=== PATIENT | male | born 1975 | race Asian ===

== ENCOUNTER 2019-02-07 20:51 | Emergency (ER) | payer BC ==
[~2019-02-07] VITALS: Ht 165.1 cm; Wt 61.7 kg
[~2019-02-07 20:51] MED LIST: ALLOPURINOL PO; METFORMIN PO
[2019-02-07 20:57] VITALS: BP 150/90
--- NOTE | 2019-02-07 20:57 | NUR ---
TO BED # 03 AMBULATORY
[2019-02-07] MEDS ORDERED: NACL 0.9% 1,000 ML IV ONE (21:20)
--- NOTE | 2019-02-07 21:25 | NUR ---
PT BIB C/O FEVER. PT STATES INTERMITTENT FEVER X3 WEEKS, HAS BEEN TAKING ADVIL AT HOME W/O RELIEF; FEVER TEMP AT HOME RANGES FROM 99.1-102. PT REPORTS NAUSEA, AND APPETITIE CHANGES DURING THIS TIME. PT STATES 0/10 PAIN AT THIS TIME. --BREATHING EQUAL AND UNLABORED; LUNG SOUNDS CLEAR. PT SPEAKING IN CLEAR AND COMPLETE SENTENCES. AFEBRILE AT THIS TIME.
[2019-02-07 21:36] LABS: BASOPHILS # (AUTO) 0.1 K/uL (0.00-0.22); BASOPHILS % (AUTO) 1.4 % (0.0-2.0); EOSINOPHILS # (AUTO) 0.3 K/uL (0-0.4); EOSINOPHILS % (AUTO) 2.7 % (0.0-4.0); HEMATOCRIT 41.5 % (36-52); HEMOGLOBIN 13.7 g/dL (12.0-18.0); LYMPHOCYTES # (AUTO) 1.3 K/uL (2.0-11.5); LYMPHOCYTES % (AUTO) 13.9 % (20.5-51.1); MEAN CORPUSCULAR HEMOGLOBIN 29 pg (27-31); MEAN CORPUSCULAR HGB CONC 33 g/dL (33-37); MEAN CORPUSCULAR VOLUME 87.8 fL (80-94); MONOCYTES % (AUTO) 10.6 % (1.7-9.3); NEUTROPHILS # (AUTO) 6.5 K/uL (1.8-7.7); NEUTROPHILS % (AUTO) 71.4 % (42.2-75.2); PLATELET COUNT (AUTO) 312 K/uL (140-450); RED BLOOD CELL COUNT(AUTO) 4.72 MIL/uL (4.20-6.10); RED CELL DISTRIBUTION WIDTH 13.4 % (11.6-13.7); WHITE BLOOD COUNT (AUTO) 9.1 K/uL (4.8-10.8)
[2019-02-07 21:39] LABS: APPEARANCE,URINE HAZY (CLEAR); BILIRUBIN,URINE NEGATIVE (NEGATIVE); BLOOD, URINE 3+ (NEGATIVE); COLOR,URINE YELLOW (YELLOW); LEUKOCYTE ESTERASE ,URINE NEGATIVE (NEGATIVE); NITRITE, URINE NEGATIVE (NEGATIVE); PH,URINE 6.5 (5.0-9.0); UGLUCOSE 3+ (NEGATIVE)
[2019-02-07 21:52] LABS: RBC,URINE TOO NUMEROUS TO COUN /HPF (0-5); WBC,URINE 0-5 /HPF (0-5)
--- NOTE | 2019-02-07 21:53 | NUR ---
PT TO X-RAY VIA WHEELCHAIR BY TECH.
[2019-02-07 21:57] LABS: ANION GAP 14.4 (8-16); CARBON DIOXIDE 26.2 mmol/L (21-32); CREATININE 1.1 mg/dL (0.7-1.3); POTASSIUM 3.6 mmol/L (3.5-5.1)
[2019-02-07 22:02] LABS: THYROID STIMULATING HORMONE 1.84 uIU/mL (0.34-3.74); TOTAL BILIRUBIN 0.5 mg/dL (0.0-1.0)
[2019-02-08] MEDS ORDERED: LEVOFLOXACIN 500 MG/D5W PREMIX 100 ML IV ONE (00:05)
--- NOTE | 2019-02-08 01:22 | NUR ---
Patient discharged with v/s stable. Patients states he is feeling better, pain 0/10 at this time. Patient acting appropriatly. Written and verbal after care instructions given and explained. Patient alert, oriented and verbalized understanding of instructions. Ambulatory with steady gait. All questions addressed prior to discharge. ID band removed. Patient advised to follow up with PMD. Rx of Levofloxacin, and Flomax given. Patient educated on indication of medication including possible reaction and side effects. Opportunity to ask questions provided and answered.
[2019-02-08 01:24] VITALS: BP 148/88
--- NOTE | 2019-02-09 07:59 | NUR ---
Late entry. Confirmed with RN that 1000 ml 0.9 NS IV completed at 2240.
== END 2019-02-08 01:22 | disposition home or self-care (01) ==
LOC: MED 20:51
DX: N20.1 Calculus of ureter (principal); N39.0 Urinary tract infection, site not specified; J02.9 Acute pharyngitis, unspecified; R51 Headache; J45.909 Unspecified asthma, uncomplicated; E11.9 Type 2 diabetes mellitus without complications; I10 Essential (primary) hypertension; Z79.84 Long term (current) use of oral hypoglycemic drugs; Z79.899 Other long term (current) drug therapy; Z88.0 Allergy status to penicillin; Z88.8 Allergy status to other drugs, medicaments and biological substances
CPT/HCPCS: 36415; 71046; 74176; 80053; 81001; 83605; 84443; 85025; 87086; 96365; 99284; J1956; J7030; 87186